=== PATIENT | female | born 1960 | race Caucasian/White ===

== ENCOUNTER 2018-06-04 09:38 | Emergency (ER) | payer SELFPAY ==
[~2018-06-04] VITALS: Ht 154.9 cm; Wt 67.0 kg
[~2018-06-04 09:38] MED LIST: IBUP1TAB69 PO; NAPR220C15 PO
[2018-06-04] MEDS ORDERED: CYCLOBENZAPRINE 10MG TABLET PO ONE (10:15)
[2018-06-04] MEDS ORDERED: HYDROCODONE/APAP 7.5/325MG 1 TAB TABLET PO ONE (10:15)
[2018-06-04 10:45] VITALS: BP 139/77
== END 2018-06-04 10:46 | disposition home or self-care (01) ==
LOC: ER 09:38
DX: B02.9 Zoster without complications (principal); I10 Essential (primary) hypertension; Z98.890 Other specified postprocedural states
CPT/HCPCS: 99283; Z7610

== ENCOUNTER 2018-06-07 12:53 | Emergency (ER) | payer SELFPAY ==
[~2018-06-07] VITALS: Ht 154.9 cm; Wt 68.0 kg
[2018-06-07] MEDS ORDERED: KETOROLAC 60MG/2ML VIAL IM ONE (16:15)
[2018-06-07 17:02] VITALS: BP 165/80
== END 2018-06-07 17:38 | disposition home or self-care (01) ==
LOC: ER 15:31
DX: B02.9 Zoster without complications (principal); I10 Essential (primary) hypertension
CPT/HCPCS: 90471; 99283; J1885

== ENCOUNTER 2020-08-29 02:47 | Emergency (ER) | payer MEDICAID ==
[~2020-08-29] VITALS: Ht 157.5 cm; Wt 72.0 kg
[2020-08-29] MEDS ORDERED: ONDANSETRON HCL 4MG/2ML INJ IV STA (03:27)
[2020-08-29] MEDS ORDERED: FAMOTIDINE 20MG/2ML VIAL IV STA (03:27)
[2020-08-29] MEDS ORDERED: SODIUM CHLORIDE 0.9% 1,000 ML IV ONE (03:30)
[2020-08-29] MEDS ORDERED: KETOROLAC 15MG/ML VIAL IV ONE (03:30)
[2020-08-29 03:59] LABS: BASOPHILS % 0.3 % (0.0-2.0); CHLORIDE 109 mEq/L (98-107); EOSINOPHILS % 0.9 % (0.0-5.0); HEMATOCRIT. 39.4 % (36.0-48.0); HEMOGLOBIN. 13.5 g/dL (12.0-16.0); LYMPHOCYTES % 49.8 % (20.0-50.0); MEAN CORPUSCULAR HEMOGLOBIN 33.2 pg (28.0-32.0); MEAN CORPUSCULAR VOLUME 97.1 fL (81.0-99.0); MEAN PLATELET VOLUME 8.8 fl (7.4-10.4); MONOCYTES % 5.7 % (2.0-8.0); NEUTROPHILS % 43.3 % (40.0-76.0); PLATELET 258 x1000/uL (130-400); RED BLOOD CELL COUNT 4.06 mill/uL (4.2-5.4); RED CELL DISTRIBUTION WIDTH 12.7 % (11.6-14.6)
[2020-08-29 04:21] LABS: CLARITY URINE CLEAR (CLEAR); COLOR URINE YELLOW (YELLOW); KETONES URINE NEGATIVE (NEGATIVE); LEUKOCYTE ESTERASE URINE NEGATIVE (NEGATIVE); NITRITE URINE NEGATIVE (NEGATIVE); OCCULT BLOOD URINE NEGATIVE (NEGATIVE); PROTEIN URINE NEGATIVE (NEGATIVE); SPECIFIC GRAVITY URINE 1.012 (1.005-1.030); UROBILINOGEN URINE 0.2 E.U./dL (0.2-1.0)
[2020-08-29] MEDS ORDERED: MORPHINE SULFATE 4 MG/ML CPJ (NOT FOR IM USE) IV ONE (05:00)
[2020-08-29 05:59] VITALS: BP 144/86
== END 2020-08-29 06:14 | disposition home or self-care (01) ==
LOC: ER 03:02
DX: S22.42XA Multiple fractures of ribs, left side, initial encounter for closed fracture (principal); R03.0 Elevated blood-pressure reading, without diagnosis of hypertension; K57.90 Diverticulosis of intestine, part unspecified, without perforation or abscess without bleeding; X58.XXXA Exposure to other specified factors, initial encounter; Y93.9 Activity, unspecified; Y92.9 Unspecified place or not applicable; Z87.442 Personal history of urinary calculi
CPT/HCPCS: 36415; 71045; 74176; 80053; 81003; 83605; 83690; 85025; 93005; 96361; 96374; 96375; 99285; J1885; J2270; J2405; J3490; J7030

== ENCOUNTER 2024-02-11 04:20 | Emergency (ER) | payer BC, MEDICAID ==
[~2024-02-11] VITALS: Ht 152.4 cm; Wt 66.0 kg
[2024-02-11 04:35] VITALS: O2SAT 99
[2024-02-11 04:57] LABS: BASOPHILS % 0.5 % (0.0-2.0); DIFFERENTIAL COMMENT 0; EOSINOPHILS % 2.3 % (0.0-5.0); HEMATOCRIT. 34.9 % (36.0-48.0); HEMOGLOBIN. 12.3 g/dL (12.0-16.0); LYMPHOCYTES % 31.7 % (20.0-50.0); MEAN CORPUSCULAR HGB CONC 35.3 g/dL (31.0-37.0); MEAN CORPUSCULAR VOLUME 101.8 fL (81.0-99.0); MEAN PLATELET VOLUME 9.3 fl (7.4-10.4); NEUTROPHILS % 55.5 % (40.0-76.0); PLATELET 233 x1000/uL (130-400); RED BLOOD CELL COUNT 3.43 mill/uL (4.2-5.4); RED CELL DISTRIBUTION WIDTH 13.6 % (11.6-14.6); WHITE BLOOD COUNT 5.7 x1000/uL (4.5-11.0)
[2024-02-11 05:18] LABS: ALANINE AMINOTRANSFERASE 77 IU/L (10-49); ALBUMIN 4.3 g/dL (3.2-4.8); ASPARTATE AMINOTRANSFERASE 165 IU/L (<34); BILIRUBIN TOTAL 1.2 mg/dL (0.1-1.0); CALCIUM 9.4 mg/dL (8.7-10.4); CARBON DIOXIDE 21 mEq/L (21-32); CHLORIDE 105 mEq/L (98-107); CREATININE 0.7 mg/dL (0.6-1.0); GLUCOSE 129 mg/dL (70-105); PROTEIN TOTAL 8.3 g/dL (6.0-8.3); SODIUM 134 mEq/L (136-145); UREA NITROGEN BLOOD 9 mg/dL (9-23)
[2024-02-11 05:36] LABS: TROPONIN I HIGH SENSITIVITY 99 ng/L (3.0-34)
[2024-02-11 06:58] LABS: CLARITY URINE CLEAR (CLEAR); COLOR URINE DARK YELLOW (YELLOW); GLUCOSE URINE NEGATIVE (NEGATIVE); KETONES URINE NEGATIVE (NEGATIVE); LEUKOCYTE ESTERASE URINE TRACE (NEGATIVE); NITRITE URINE NEGATIVE (NEGATIVE); OCCULT BLOOD URINE NEGATIVE (NEGATIVE); PROTEIN URINE NEGATIVE (NEGATIVE); SPECIFIC GRAVITY URINE 1.018 (1.005-1.030)
[2024-02-11] MEDS ORDERED: IOHEXOL-300 100 ML BOTTLE ONE (07:03)
[2024-02-11 07:16] LABS: BACTERIA URINE 1+; RBC URINE 0-2 /hpf (0-2); SQUAMOUS EPITHELIAL CELL URINE FEW /lpf (RARE/1+); WBC URINE NONE SEEN /hpf (0-2)
[2024-02-11] MEDS: SODIUM CHLORIDE 0.9% 1,000 ML IV ONE (07:16)
[2024-02-11] MEDS: KETOROLAC 30MG/ML VIAL IV STA (07:16)
[2024-02-11] MEDS: ONDANSETRON HCL 4MG/2ML INJ IV STA (07:16)
[2024-02-11 08:12] LABS: TROPONIN I HIGH SENSITIVITY 92 ng/L (3.0-34)
[2024-02-11] MEDS ORDERED: DICY20TA2 PO (08:52)
[2024-02-11] MEDS ORDERED: ONDA4TAB50 PO (08:52)
[2024-02-11 09:26] VITALS: BP 151/75; PULSE 82; RESP 18; TEMP 98.1
== END 2024-02-11 09:40 | disposition home or self-care (01) ==
LOC: ER 04:20
DX: R10.9 Unspecified abdominal pain (principal)
CPT/HCPCS: 80053; 81003; 83690; 85025; 84484; 36415; 74177; 76705; 93005; 96361; 96374; 96375; 99285; Q9967; J1885; J2405; J7030; Z7610 ×2